=== PATIENT | female | born 1925 | race Caucasian/White ===

== ENCOUNTER 2016-08-17 12:56 | Observation (INO) | payer OTHER ==
[~2016-08-17] VITALS: Ht 149.9 cm; Wt 49.0 kg
[~2016-08-17 12:56] MED LIST: AMLODIPINE BESY10 MG PO; ASPIRIN81 M1 PO; AZITHROMYCIN250 MG1 PO; Aspirin E.C. PO; BENICAR HCT 401 EAC1 PO; Benicar PO; FLORASTOR250 MG PO; HYDROCHLOROTHIA25 MG PO; LEVEMIR FL100 UNIT/1 SC; LEVEMIR FL100 UNITS/ SC; LEVEMIR100 UNIT/1 SQ; Levaquin PO; NITROSTAT0.4 MG SL; NORVASC10 MG PO; NOVOLOG PE100 UNITS/ SC; NOVOLOG100 UNIT/3 SQ; OXAZEPAM15 MG PO; PRINIVIL10 MG PO; PROTONIX40 MG PO; SERAX15 MG PO; ST. JOSEPH ASPI81 MG PO; TOPROL XL200 MG PO; Toprol XL PO; VANCOMYCIN125 MG/2.5 PO
[2016-08-17 14:39] LABS: EOSINOPHIL (%) 0 % (0-5); HEMATOCRIT 33.7 % (36.0-46.0); IMMATURE GRANULOCYTE (%) 0.4 % (0.0-0.7); IMMATURE GRANULOCYTE COUNT 0.1 K/uL; INSTRUMENT ABS NEUTROPHIL CT 13.2 K/uL; LYMPHOCYTE COUNT 0.7 K/uL (1.0-2.8); MCH 29.6 PG (29.0-34.0); MCV 92.3 FL (83-99); MEAN PLAT.VOLUME 11.7 uM^3 (9.5-12.4); MONOCYTE (%) 10.3 % (3-12); MONOCYTE COUNT 1.6 K/uL (0-0.8); NEUTROPHIL (%) 84.4 % (45-76); NEUTROPHIL COUNT 13.2 K/uL (1.8-6.4); PLATELET COUNT 188 K/uL (156-360); RBC DIS.WIDTH-CV 13.3 % (11.8-14.6); RBC DIS.WIDTH-SD 45.3 % (39-53); RED BLOOD COUNT 3.65 M/uL (3.80-5.20); WHITE BLOOD COUNT 15.7 K/uL (4.1-10.2)
[2016-08-17 14:49] LABS: CHLORIDE 112 mEq/L (99-109); POTASSIUM 4.7 mEq/L (3.7-5.4)
[2016-08-17 14:50] LABS: SODIUM 136 mEq/L (136-147)
[2016-08-17 14:52] LABS: GLUCOSE 306 mg/dL (70-99)
[2016-08-17 14:53] LABS: ANION GAP 8 MEQ/L (2-14)
[2016-08-17 14:54] LABS: TOTAL BILIRUBIN 0.8 mg/dL (0.0-1.0)
[2016-08-17 14:55] LABS: ALKALINE PHOSPHATASE 129 IU/L (3-129); GFR ESTIMATE (CALCULATED) 56 mL/min/
[2016-08-17 14:57] LABS: UREA NITROGEN (BUN) 15 mg/dL (9-23)
[2016-08-17 14:59] LABS: LIPASE 67 U/L (1.0-51.0)
[2016-08-17 15:27] LABS: ADD MIUA? YES; BILIRUBIN NEGATIVE; BLOOD SMALL; COLOR YELLOW ((YELLOW)); GLUCOSE (STRIP) 50; KETONES NEGATIVE; LEUKOCYTES LARGE; NITRITE POSITIVE; PROTEIN (STRIP) 30; SPECIFIC GRAVITY 1.011 (1.000-1.030); UROBILINOGEN 0.2 MG/DL (0.2-1.0)
[2016-08-17 15:51] LABS: BACTERIA 2+ /HPF; EPITHELIAL CELLS 1+ /HPF; MUCUS TRACE /LPF; RED BLOOD CELLS NONE SEEN /HPF (0-5); WHITE BLOOD CELLS 40-50 /HPF (0-5)
[2016-08-17 19:14] VITALS: BP 150/68
[2016-08-17 19:23] LABS: Estimated Average Glucose 166 mg/dL (70-123); HEMOGLOBIN A1c (GLYCOHEMOGLOB) 7.4 % HGB (Below 5.7)
[2016-08-18 00:56] VITALS: BP 128/66
[2016-08-18 04:05] VITALS: BP 149/65
[2016-08-18 07:00] LABS: ALKALINE PHOSPHATASE 88 IU/L (3-129); ANION GAP 6 MEQ/L (2-14); CHLORIDE 113 MEQ/L (99-109); GFR ESTIMATE (CALCULATED) 56 mL/min/; GLUCOSE 276 mg/dL (70-99); SAMPLE HEMOLYSIS CHECK 0; SAMPLE ICTERIC CHECK 0; SAMPLE LIPEMIA CHECK 0; SODIUM 137 MEQ/L (136-147); TOTAL BILIRUBIN 0.4 MG/DL (0.0-1.0); UREA NITROGEN (BUN) 15 mg/dL (9-23)
[2016-08-18 07:13] LABS: HEMATOCRIT 27.9 % (36.0-46.0); MCH 29.4 PG (29.0-34.0); MCHC 31.2 G/DL (30.0-36.0); MCV 94.3 FL (83-99); PLATELET COUNT 152 K/uL (156-360); RBC DIS.WIDTH-CV 13.7 % (11.8-14.6); RBC DIS.WIDTH-SD 47.1 % (39-53); RED BLOOD COUNT 2.96 M/uL (3.80-5.20); WHITE BLOOD COUNT 13.5 K/uL (4.1-10.2)
[2016-08-18 07:37] VITALS: BP 178/75
[2016-08-18] MEDS ORDERED: BENICAR HCT 401 EAC1 PO (09:25)
[2016-08-18] MEDS ORDERED: TOPROL XL200 MG PO (09:26)
[2016-08-18] MEDS ORDERED: NORVASC10 MG PO (09:27)
[2016-08-18] MEDS ORDERED: ERGOCALCIF50000 UNIT PO (09:30)
[2016-08-18 10:54] VITALS: BP 195/75
[2016-08-18] MEDS ORDERED: CIPRO500 MG PO (12:46)
[2016-08-18] MEDS ORDERED: METRONIDAZOLE500 MG PO (12:46)
[2016-08-18 17:36] VITALS: BP 160/72
== END 2016-08-18 19:56 | disposition home health service (06) ==
LOC: EME 12:56 → EDOF 17:28 → 5WEST 17:28 → EDOF 17:28 → 5WEST 19:01
PROVIDERS: Emergency Medicine; Hospitalist
DX: N39.0 Urinary tract infection, site not specified (principal); K52.9 Noninfective gastroenteritis and colitis, unspecified; I25.10 Atherosclerotic heart disease of native coronary artery without angina pectoris; I10 Essential (primary) hypertension; E11.9 Type 2 diabetes mellitus without complications; Z66 Do not resuscitate; I48.91 Unspecified atrial fibrillation; Z79.4 Long term (current) use of insulin
CPT/HCPCS: 74177; 80053; 81003; 83036; 83605; 83690; 85025; 85027; 87040; 87077; 87086; 87186; 87493; 99281; 99285; G0378; G8987 GO CI; G8988 GO CH; J0744; J1644; J2270; J2405; J7030; S0028; S0030

== ENCOUNTER 2017-05-12 08:40 | Emergency (ER) | payer OTHER ==
[~2017-05-12] VITALS: Ht 149.9 cm; Wt 45.0 kg
[~2017-05-12 08:40] MED LIST changes: +CIPRO500 MG PO; +ERGOCALCIF50000 UNIT PO; +LEVAQUIN500 MG PO; +METRONIDAZOLE500 MG PO
[2017-05-12 09:05] LABS: HEMATOCRIT 36.3 % (36.0-46.0); HEMOGLOBIN 11.6 G/DL (11.9-15.5); MCH 28.6 PG (29.0-34.0); MCV 89.4 FL (83-99); PLATELET COUNT 217 K/uL (156-360); RBC DIS.WIDTH-CV 14.4 % (11.8-14.6); RED BLOOD COUNT 4.06 M/uL (3.80-5.20); WHITE BLOOD COUNT 9.2 K/uL (4.1-10.2)
[2017-05-12 09:14] LABS: CHLORIDE 109 mEq/L (99-109); POTASSIUM 5.3 mEq/L (3.7-5.4); SODIUM 133 mEq/L (136-147)
[2017-05-12 09:16] LABS: GLUCOSE 403 mg/dL (70-99)
[2017-05-12 09:19] LABS: CREATININE 1.4 mg/dL (0.6-1.3); GFR ESTIMATE (CALCULATED) 38 mL/min/
[2017-05-12 09:20] LABS: UREA NITROGEN (BUN) 13 mg/dL (9-23)
[2017-05-12 09:34] LABS: APPEARANCE SL.HAZY ((CLEAR)); BILIRUBIN NEGATIVE; BLOOD LARGE; COLOR YELLOW ((YELLOW)); GLUCOSE (STRIP) >=500; KETONES NEGATIVE; LEUKOCYTES MODERATE; NITRITE NEGATIVE; PROTEIN (STRIP) 30; SPECIFIC GRAVITY 1.009 (1.000-1.030); UROBILINOGEN 0.2 MG/DL (0.2-1.0)
[2017-05-12 09:39] LABS: BACTERIA 1+ /HPF; EPITHELIAL CELLS 1+ /HPF; MUCUS NONE SEEN /LPF; RED BLOOD CELLS 30-40 /HPF (0-5); UCUL ADDED? YES; WHITE BLOOD CELLS TNTC /HPF (0-5)
[2017-05-12] MEDS ORDERED: LEVAQUIN750 MG PO (11:42)
[2017-05-12] MEDS ORDERED: ZOFRAN4 MG PO (11:44)
[2017-05-12 15:02] VITALS: BP 161/67
== END 2017-05-12 15:03 | disposition home or self-care (01) ==
LOC: EME 08:40
PROVIDERS: Emergency Medicine
DX: N39.0 Urinary tract infection, site not specified (principal); I10 Essential (primary) hypertension; E11.9 Type 2 diabetes mellitus without complications; K21.9 Gastro-esophageal reflux disease without esophagitis; I25.2 Old myocardial infarction; F41.9 Anxiety disorder, unspecified; Z87.440 Personal history of urinary (tract) infections; Z79.4 Long term (current) use of insulin; Z87.891 Personal history of nicotine dependence; Z90.49 Acquired absence of other specified parts of digestive tract; Z98.61 Coronary angioplasty status; Z79.82 Long term (current) use of aspirin; Z88.1 Allergy status to other antibiotic agents; Z88.0 Allergy status to penicillin; Z88.5 Allergy status to narcotic agent; Z88.8 Allergy status to other drugs, medicaments and biological substances
CPT/HCPCS: 74177; 80048; 81003; 82948; 85027; 87086; 99281; 99285; J1956; J7030

== ENCOUNTER 2017-07-22 20:34 | Inpatient (IN) | payer OTHER ==
[~2017-07-22] VITALS: Ht 149.9 cm; Wt 53.5 kg
[~2017-07-22 20:34] MED LIST changes: +LEVAQUIN750 MG PO; +ZOFRAN4 MG PO
[2017-07-22 21:17] LABS: HEMATOCRIT 34.3 % (36.0-46.0); HEMOGLOBIN 10.9 G/DL (11.9-15.5); MCH 28.6 PG (29.0-34.0); MCHC 31.8 G/DL (30.0-36.0); PLATELET COUNT 260 K/uL (156-360); RBC DIS.WIDTH-CV 14.5 % (11.8-14.6); RBC DIS.WIDTH-SD 47.8 % (39-53); RED BLOOD COUNT 3.81 M/uL (3.80-5.20); WHITE BLOOD COUNT 9.5 K/uL (4.1-10.2)
[2017-07-22 21:23] LABS: APPEARANCE TURBID ((CLEAR)); BILIRUBIN NEGATIVE; BLOOD MODERATE; COLOR AMBER ((YELLOW)); GLUCOSE (STRIP) 50; KETONES NEGATIVE; LEUKOCYTES LARGE; NITRITE NEGATIVE; PROTEIN (STRIP) 100; SPECIFIC GRAVITY 1.014 (1.000-1.030); UROBILINOGEN 0.2 MG/DL (0.2-1.0)
[2017-07-22 21:40] LABS: CHLORIDE 117 mEq/L (99-109); SODIUM 136 mEq/L (136-147); TROP-I INTERPRETATION NEGATIVE; TROPONIN-I < 0.01 ng/mL (0.0-0.30)
[2017-07-22 21:42] LABS: GLUCOSE 221 mg/dL (70-99)
[2017-07-22 21:45] LABS: BACTERIA 2+ /HPF; EPITHELIAL CELLS 3+ /HPF; MUCUS 1+ /LPF; RED BLOOD CELLS RARE /HPF (0-5); UCUL ADDED? YES; WHITE BLOOD CELLS TNTC /HPF (0-5)
[2017-07-22 21:46] LABS: CREATININE 1.5 mg/dL (0.6-1.3); GFR ESTIMATE (CALCULATED) 35 mL/min/
[2017-07-22 21:47] LABS: UREA NITROGEN (BUN) 15 mg/dL (9-23)
[2017-07-22 21:58] LABS: POTASSIUM 6.5 mEq/L (3.7-5.4)
[2017-07-23 01:32] LABS: CHLORIDE 118 mEq/L (99-109); POTASSIUM 5.9 mEq/L (3.7-5.4); SODIUM 139 mEq/L (136-147)
[2017-07-23 01:35] LABS: GLUCOSE 113 mg/dL (70-99)
[2017-07-23 01:38] LABS: CREATININE 1.2 mg/dL (0.6-1.3); GFR ESTIMATE (CALCULATED) 45 mL/min/
[2017-07-23 01:39] LABS: UREA NITROGEN (BUN) 17 mg/dL (9-23)
[2017-07-23 05:55] LABS: TROP-I INTERPRETATION NEGATIVE; TROPONIN-I < 0.01 ng/mL (0.0-0.30)
[2017-07-23 06:00] VITALS: BP 137/65
[2017-07-23 07:43] VITALS: BP 179/80
[2017-07-23 11:59] VITALS: BP 187/87
[2017-07-23 12:19] LABS: TROP-I INTERPRETATION NEGATIVE; TROPONIN-I < 0.01 ng/mL (0.0-0.30)
[2017-07-23 12:31] LABS: CHLORIDE 114 MEQ/L (99-109); CREATININE 1.1 MG/DL (0.6-1.3); GFR ESTIMATE (CALCULATED) 50 mL/min/; GLUCOSE 315 mg/dL (70-99); POTASSIUM 5.1 MEQ/L (3.7-5.4); SODIUM 138 MEQ/L (136-147); UREA NITROGEN (BUN) 16 mg/dL (9-23)
[2017-07-23] MEDS ORDERED: NOVOLOG PE100 UNITS/ SC ×2 (13:08→13:09)
[2017-07-23] MEDS ORDERED: BENICAR40 MG PO (13:13)
[2017-07-23] MEDS ORDERED: PREMARIN VAGI42.5 GM TP (13:19)
[2017-07-23 16:12] VITALS: BP 167/89
[2017-07-23 19:25] VITALS: BP 188/79
[2017-07-23 23:48] VITALS: BP 176/74
[2017-07-24 03:14] VITALS: BP 166/73
[2017-07-24 06:25] LABS: BASOPHIL (%) 0.7 % (0-1); BASOPHIL COUNT 0.1 K/uL (0-0.1); EOSINOPHIL COUNT 0.3 K/uL (0-0.3); HEMATOCRIT 30.7 % (36.0-46.0); HEMOGLOBIN 9.8 G/DL (11.9-15.5); IMMATURE GRANULOCYTE (%) 0.9 % (0.0-0.7); LYMPHOCYTE (%) 19.5 % (15-42); LYMPHOCYTE COUNT 1.6 K/uL (1.0-2.8); MCH 28.2 PG (29.0-34.0); MCHC 31.9 G/DL (30.0-36.0); MCV 88.2 FL (83-99); MONOCYTE (%) 15.8 % (3-12); MONOCYTE COUNT 1.3 K/uL (0-0.8); NEUTROPHIL (%) 59.1 % (45-76); NEUTROPHIL COUNT 4.8 K/uL (1.8-6.4); PLATELET COUNT 237 K/uL (156-360); RBC DIS.WIDTH-CV 14.6 % (11.8-14.6); RBC DIS.WIDTH-SD 46.5 % (39-53); RED BLOOD COUNT 3.48 M/uL (3.80-5.20); WHITE BLOOD COUNT 8.2 K/uL (4.1-10.2)
[2017-07-24 06:43] LABS: ALBUMIN 2.8 G/DL (3.2-4.8); ALKALINE PHOSPHATASE 124 IU/L (3-129); ALT (GPT) 24 IU/L (3-49); AST (GOT) 28 IU/L (2-34); CHLORIDE 111 MEQ/L (99-109); CREATININE 0.8 MG/DL (0.6-1.3); GFR ESTIMATE (CALCULATED) > 59 mL/min/; POTASSIUM 4.4 MEQ/L (3.7-5.4); SODIUM 140 MEQ/L (136-147); TOTAL BILIRUBIN 0.4 MG/DL (0.0-1.0); TOTAL PROTEIN 5.2 G/DL (6.4-8.3); UREA NITROGEN (BUN) 10 mg/dL (9-23)
[2017-07-24 06:44] LABS: GLUCOSE 108 mg/dL (70-99)
[2017-07-24 07:54] VITALS: BP 159/88
[2017-07-24 08:50] LABS: IRON 111 MCG/DL (35-150); TRANSFERRIN (TIBC) 216.3 mg/dL (215-380); TRANSFERRIN SATUR. 51 % (20-55)
[2017-07-24 19:40] VITALS: BP 189/79
[2017-07-24 23:09] VITALS: BP 174/75
[2017-07-25 03:28] VITALS: BP 167/72
[2017-07-25 07:53] VITALS: BP 200/76
[2017-07-25 08:29] VITALS: BP 196/83
[2017-07-25 11:06] VITALS: BP 185/79
[2017-07-25 15:17] VITALS: BP 157/78
[2017-07-25 19:59] VITALS: BP 159/69
[2017-07-26 00:23] VITALS: BP 167/68
[2017-07-26 03:32] VITALS: BP 157/71
[2017-07-26 06:37] VITALS: BP 177/74
[2017-07-26 15:36] VITALS: BP 142/63
[2017-07-27 00:20] VITALS: BP 148/70
[2017-07-27 09:07] VITALS: BP 158/65
[2017-07-27] MEDS ORDERED: AMLODIPINE BESY10 MG PO (12:25)
[2017-07-27] MEDS ORDERED: Salonpas 4% Patch TD (12:27)
[2017-07-27] MEDS ORDERED: TRAMADOL HCL50 MG PO (12:27)
[2017-07-27] MEDS ORDERED: TRIMETHOPRIM100 MG PO (12:30)
== END 2017-07-27 16:00 | DRG 683 ==
LOC: EME → EDBD 20:34 → EME 20:34 → EDOF 07-23 04:24 → 5SOUTH 07-23 04:24 → ENRESERV 07-23 04:28 → 5SOUTH 07-23 05:46 → ENPENDDIS 07-27 13:58 → 5SOUTH 07-27 16:00
PROVIDERS: Emergency Medicine; Hospitalist
DX: N17.9 Acute kidney failure, unspecified (principal); N39.0 Urinary tract infection, site not specified; R07.89 Other chest pain; I25.10 Atherosclerotic heart disease of native coronary artery without angina pectoris; E87.2 Acidosis; R30.0 Dysuria; E87.5 Hyperkalemia; K86.9 Disease of pancreas, unspecified; M17.0 Bilateral primary osteoarthritis of knee; J44.9 Chronic obstructive pulmonary disease, unspecified; K44.9 Diaphragmatic hernia without obstruction or gangrene; Z66 Do not resuscitate; R19.7 Diarrhea, unspecified; I12.9 Hypertensive chronic kidney disease with stage 1 through stage 4 chronic kidney disease, or unspecified chronic kidney disease; E55.9 Vitamin D deficiency, unspecified; E87.8 Other disorders of electrolyte and fluid balance, not elsewhere classified; N25.89 Other disorders resulting from impaired renal tubular function; I48.0 Paroxysmal atrial fibrillation; M25.562 Pain in left knee; E11.649 Type 2 diabetes mellitus with hypoglycemia without coma; M25.512 Pain in left shoulder; Z96.651 Presence of right artificial knee joint; D50.9 Iron deficiency anemia, unspecified; N18.3 Chronic kidney disease, stage 3 (moderate); E86.0 Dehydration; E11.22 Type 2 diabetes mellitus with diabetic chronic kidney disease; M71.22 Synovial cyst of popliteal space [Baker], left knee; B37.3 Candidiasis of vulva and vagina; M25.462 Effusion, left knee; Z87.440 Personal history of urinary (tract) infections; I25.2 Old myocardial infarction; Z98.61 Coronary angioplasty status; Z87.891 Personal history of nicotine dependence; Z80.0 Family history of malignant neoplasm of digestive organs; Z85.038 Personal history of other malignant neoplasm of large intestine; Z80.3 Family history of malignant neoplasm of breast; Z80.6 Family history of leukemia; Z79.4 Long term (current) use of insulin; Z90.49 Acquired absence of other specified parts of digestive tract; Z88.6 Allergy status to analgesic agent; Z88.0 Allergy status to penicillin; Z91.018 Allergy to other foods
CPT/HCPCS: 70450; 71046; 73030; 73560; 80047; 80048; 80048 91; 80053; 81003; 82306; 82948; 83540; 83605; 84466; 84484; 84999; 85025; 85027; 85379; 85610; 87040; 87086 GA; 87493; 93005; 93970; 94644; 97530 GO; 99281; 99285; J0610; J0692; J0696; J1644; J1815; J1956; J7030; J7050